=== PATIENT | male | born 1960 | race Caucasian/White ===

== ENCOUNTER 2018-06-06 16:58 | Inpatient (IN) | payer MEDICAID ==
[~2018-06-06] VITALS: Ht 152.4 cm; Wt 94.0 kg
--- NOTE | 2018-06-06 18:10 | NUR ---
juan presented to the ER c/o transient memory loss, on room air, breathing evenly and unlabored. Ambulatory with steady gait. denies any pain at this time. Connected to the montior and [employer]. kept comfortable. will continue to monitor accordingly.
[2018-06-06 18:38] LABS: BASOPHILS % (AUTO) 0.5 % (0.0-2.0); HEMATOCRIT 47 % (39-51); HEMOGLOBIN 15.7 g/dL (13.5-17.5); LYMPHOCYTES % (AUTO) 24.2 % (20.0-44.0); MEAN CORPUSCULAR HGB CONC 34 g/dl (31.0-36.0); MEAN CORPUSCULAR VOLUME 84 fL (80-96); MONOCYTES # (AUTO) 0.6 /CMM (0.1-1.30); MONOCYTES % (AUTO) 6.8 % (2.0-12.0); NEUTROPHILS # (AUTO) 5.5 /CMM (1.8-8.9); NEUTROPHILS % (AUTO) 66.5 % (43.0-81.0); PLATELET COUNT (AUTO) 282 /CMM (150-450); RED BLOOD CELL COUNT(AUTO) 5.57 MIL/uL (4.5-6.0); WHITE BLOOD COUNT (AUTO) 8.3 K/uL (4.3-11.0)
[2018-06-06 18:51] LABS: CARBON DIOXIDE 26 mmol/L (21-32); CHLORIDE 104 mmol/L (98-107); CREATININE 0.7 mg/dL (0.6-1.3); GLUCOSE 115 mg/dL (74-106); POTASSIUM 3.9 mmol/L (3.5-5.1); SODIUM SERUM 137 mmol/L (136-145); UREA NITROGEN, BLOOD 17 mg/dL (7-18)
[2018-06-06 18:56] LABS: ALANINE AMINOTRANSFERASE 32 U/L (12-78); ALBUMIN 3.7 g/dL (3.4-5.0); ALKALINE PHOSPHATASE 96 U/L (46-116); ASPARTATE AMINOTRANSFERASE 22 U/L (15-37); BILIRUBIN,DIRECT 0.1 mg/dL (0.0-0.2); BILIRUBIN,TOTAL 0.4 mg/dL (0.2-1.0); TOTAL PROTEIN, SERUM 7.7 g/dL (6.4-8.2)
[2018-06-06] MEDS ORDERED: ASPIRIN 325 MG TABLET PO ONE (19:30)
--- NOTE | 2018-06-06 19:44 | NUR ---
endorsed to overnight caregiver RN meri for salvador.
[2018-06-06] MEDS ORDERED: ASPIRIN 325 MG TABLET ONE (19:47)
[2018-06-06 20:07] LABS: APPEARANCE,URINE Clear (CLEAR); BILIRUBIN,URINE Negative (NEGATIVE); BLOOD, URINE Trace-lysed Ery/uL (NEGATIVE); COLOR,URINE Yellow (YELLOW); KETONES,URINE Negative (NEGATIVE); LEUKOCYTE ESTERASE ,URINE Negative (NEGATIVE); NITRITE, URINE Negative (NEGATIVE); PH,URINE 5.5 (5.0-8.0); PROTEIN,URINE Negative (NEGATIVE); UGLUCOSE Negative (NEGATIVE); UROBILINOGEN,URINE 0.2 EU/dL (0.2)
[2018-06-06 20:23] LABS: BACTERIA,URINE None seen /HPF (None Seen); RBC,URINE 0-2 /HPF (0-2); SQUAMOUS EPITHELIAL CELL,UR None Seen /HPF (None Seen); WBC,URINE NONE SEEN /HPF (0-3)
[2018-06-06] MEDS ORDERED: MAGNESIUM HYDROXIDE 30 ML UDC PO PRN (20:30)
[2018-06-06] MEDS ORDERED: Z GUARD REMEDY 2 OZ OINT TP PRN (20:30)
[2018-06-06] MEDS ORDERED: ZOLPIDEM TARTRATE 5 MG TABLET PO PRN (20:30)
[2018-06-06] MEDS ORDERED: HYDROCODONE/APAP 5/325MG 1 EACH TABLET PO PRN (20:30)
[2018-06-06] MEDS ORDERED: ONDANSETRON HCL/PF 4 MG/2 ML VIAL IVP PRN (20:30)
[2018-06-06] MEDS ORDERED: ACETAMINOPHEN 325 MG TABLET PO PRN (20:30)
[2018-06-06] MEDS ORDERED: MAG HYDROX/AL HYDROX/SIMETH 30 ML UDC PO PRN (20:30)
--- NOTE | 2018-06-06 20:37 | NUR ---
PT RESTING IN BED, NAD NOTED. WILL CONTINUE TO MONITOR.
--- NOTE | 2018-06-06 20:41 | NUR ---
2ND EKG AT BEDSIDE.
--- NOTE | 2018-06-06 21:04 | NUR ---
REPORT GIVEN TO PETER JACK RN FOR PAYTON.
[2018-06-06 21:10] VITALS: BP 133/91
--- NOTE | 2018-06-06 21:10 | NUR ---
RN NOTES RECEIVED PT. FROM ER WITH DX. OF AMS, SR ON TELE MONITOR HR78, A/OX4, [place] SPEAKING, SON AT BEDSIDE, ADMISSION INSTRUCTION WAS GIVEN, CALL LIGHT WITHIN REACH, [id number], CONTINUE TO MONITOR
[2018-06-06] MEDS: BLOOD SUGAR DIAGNOSTIC 1 EACH STRIP IN SCH (22:00)
[2018-06-07] VITALS: BP 115/66
[2018-06-07] MEDS: BLOOD SUGAR DIAGNOSTIC 1 EACH STRIP IN SCH ×7 (00:04→21:46)
[2018-06-07 04:00] VITALS: BP 113/64
--- NOTE | 2018-06-07 06:00 | NUR ---
RN NOTE CHECK BLOOD SUGAR FOR STROKE PROTOCOL, BLOOD SUGAR-151.. INFORMED DR. CHOW, NO ORDER WAS GIVEN
[2018-06-07 06:29] LABS: CALCIUM, SERUM 8.7 mg/dL (8.5-10.1); CREATININE 0.8 mg/dL (0.6-1.3); MAGNESIUM 2.2 mg/dL (1.8-2.4); PHOSPHORUS 3.6 mg/dL (2.5-4.9)
[2018-06-07 06:31] LABS: BASOPHILS % (AUTO) 0.6 % (0.0-2.0); EOSINOPHILS % (AUTO) 2.9 % (0.0-6.0); HEMATOCRIT 44 % (39-51); HEMOGLOBIN 15.1 g/dL (13.5-17.5); LYMPHOCYTES # (AUTO) 1.5 /CMM (0.8-4.8); MEAN CORPUSCULAR HGB CONC 34 g/dl (31.0-36.0); MEAN CORPUSCULAR VOLUME 84 fL (80-96); MONOCYTES # (AUTO) 0.5 /CMM (0.1-1.30); MONOCYTES % (AUTO) 7.8 % (2.0-12.0); NEUTROPHILS # (AUTO) 4.1 /CMM (1.8-8.9); NEUTROPHILS % (AUTO) 64.7 % (43.0-81.0); PLATELET COUNT (AUTO) 272 /CMM (150-450); RED BLOOD CELL COUNT(AUTO) 5.27 MIL/uL (4.5-6.0); WHITE BLOOD COUNT (AUTO) 6.4 K/uL (4.3-11.0)
--- NOTE | 2018-06-07 06:37 | NUR ---
RN NOTES AWAKE, DENIES PAIN, NO SOB, CALL LIGHT WITHIN REACH,[id number]. MORNING CARE RENDERED, PT. NEEDS ATTENDED
--- NOTE | 2018-06-07 07:32 | NUR ---
RN OPENING NOTE PT WAS RECEIVED IN BED AT LOWEST AND LOCKED POSITION WITH SIDE RAILS UP X2, A/O X4 RESTING COMFORTABLY IN BED [place]UR[place] SPEAKING, ON TELE MONITOR NOTED TO BE SR, ON STROKE PROTOCOL WITH NEUROCHECKS AND ACCUCHECKS, IV IS PATENT AND INTACT, NO CURRENT COMPLAINTS OF ANY DISTRESS OR PAIN AT THIS TIME, SAFETY PRECAUTIONS IN PLACE, CALL LIGHT WITHIN REACH, WILL MONITOR ACCORDINGLY.
[2018-06-07 08:00] VITALS: BP 109/64
[2018-06-07] MEDS: ASPIRIN 81 MG TAB.CHEW PO SCH (08:01)
--- NOTE | 2018-06-07 11:04 | NUR ---
RN NOTE STROKE EDUCATION, SURVEY, AND BOOKLET PROVIDED TO THE PATIENT AT THIS TIME.
--- NOTE | 2018-06-07 12:18 | NUR ---
RN NOTE PT BLOOD GLUCOSE NOTED TO BE 132 AT THIS TIME, ON ACCUCHECK DUE TO STROKE PROTOCOL, DOSE OF METFORMIN SCHEDULED FOR LATER TODAY, WILL MONITOR ACCORDINGLY.
[2018-06-07 16:00] VITALS: BP 124/78
[2018-06-07] MEDS: METFORMIN 500 MG TABLET PO SCH (16:04)
--- NOTE | 2018-06-07 18:21 | NUR ---
RN CLOSING NOTE PT IN BED AT THIS TIME RESTING IN BED AT LOWEST AND LOCKED POSITION WITH SIDE RAILS UP X2, A/O X4 BREATHING EVEN AND UNLABORED ON RA, NO CURRENT COMPLAINTS OF PAIN OR DISTRESS, IV IS PATENT AND INTACT, FAMILY AT THE BEDSIDE, SAFETY PRECAUTIONS IN PLACE, CALL LIGHT WITHIN REACH, WILL ENDORSE TO NET C DEVELOPER RN FOR PAYTON.
--- NOTE | 2018-06-07 19:40 | NUR ---
RN OPENING NOTES RECEIVED REPORT FROM DAYSHIFT FABI[employer]N SALAS. FOUND Pt AWAKE, SITTING UP IN BED. FAMILY VISITING AT BEDSIDE. Pt IS A/OX4, [place] SPEAKING, UNDERSTANDS SOME [place]. NO S/S OF ACUTE DISTRESS OR SOB NOTED. RESPIRATIONS EVEN AND UNLABORED. Pt IS AMB WITH BRP. IV ACCESS ON LAC #18G, SL. D/C PLANNING FOR TOMORROW WHEN CLEARED BY NEURO; WAITING ON NEURO CONSULT. SAFETY MEASURES IN PLACE. BED LOW, LOCKED, HOB ELEVATED, SIDE RAILS UP, CALL LIGHT AND BEDSIDE TABLE WITHIN REACH. WILL CONTINUE TO MONITOR Pt's CONDITION AND SAFETY THROUGHOUT THE NIGHT.
[2018-06-07 20:00] VITALS: BP 119/70
--- NOTE | 2018-06-07 21:53 | NUR ---
RN NOTES HS ACCUCHECK BG 140. NO SLIDING SCALE ORDERED. PER ACCUCHECK NOTE SAID TO NOTIFY MD IF BG >150.
[2018-06-07] MEDS ORDERED: ATORVASTATIN 10 MG TABLET PO SCH (22:00)
[2018-06-08] MEDS: BLOOD SUGAR DIAGNOSTIC 1 EACH STRIP IN SCH ×2 (06:49→12:16)
--- NOTE | 2018-06-08 07:00 | NUR ---
RN NOTES AC ACCUCHECK BG 153. NO SLIDING SCALE ORDERED FOR Pt. NOTIFIED DR CHOW OF Pt's BLOOD GLUCOSE. PER ACCUCHECK DOSE INSTRUCTIONS, SAYS TO NOTIFY MD IF BLOOD SUGAR >150.
--- NOTE | 2018-06-08 07:01 | NUR ---
RN CLOSING NOTES NO SIGNIFICANT CHANGES IN Pt's CONDITION. Pt REMAINS STABLE PER BASELINE. NO S/S OF ACUTE DISTRESS OR SOB NOTED DURING THE NIGHT. RESPIRATIONS EVEN AND UNLABORED. ALL NEEDS MET AND ATTENDED TO. SAFETY MEASURES IN PLACE. WILL ENDORSE TO DAYSHIFT RN FOR Pt's PAYTON.
--- NOTE | 2018-06-08 07:25 | NUR ---
RN OPENING NOTE PT WAS RECEIVED IN BED AT LOWEST AND LOCKED POSITION WITH SIDE RAILS UP X2, A/O X4 RESTING COMFORTABLY IN BED [place] SPEAKING,, ON STROKE PROTOCOL WITH NEUROCHECKS AND ACCUCHECKS, IV IS PATENT AND INTACT, BREATHING EVEN AND UNLABORED ON RA, NO CURRENT COMPLAINTS OF ANY DISTRESS OR PAIN AT THIS TIME, SAFETY PRECAUTIONS IN PLACE, CALL LIGHT WITHIN REACH, WILL MONITOR ACCORDINGLY.
[2018-06-08 08:00] VITALS: BP 115/76
[2018-06-08] MEDS: ASPIRIN 81 MG TAB.CHEW PO SCH (08:12)
[2018-06-08] MEDS: METFORMIN 500 MG TABLET PO SCH (08:12)
[2018-06-08] MEDS ORDERED: ATOR10TA PO (15:08)
[2018-06-08] MEDS ORDERED: METF-440 PO (15:08)
[2018-06-08] MEDS ORDERED: ASPI-1169 PO (15:08)
[2018-06-08 16:00] VITALS: BP 121/72
--- NOTE | 2018-06-08 16:13 | NUR ---
DISCHARGE NOTE PT WAS D/C AT THIS IN MEDICALLY STABLE CONDITION BACK HOME. ALL EXITCARE, D/C PAPERWORK, AND BELONGING LIST WERE SIGNED, DISCUSSED, AND HANDED TO THE PATIENT IN [place]. ALL BELONGINGS WERE TAKEN BY THE PATIENT. IV AND ID BAND WERE REMOVED. STROKE SURVEY WAS FILLED OUT AND PUT IN THE BINDER, STROKE AND TIA INFORMATION WERE PROVIDED TO THE PATIENT. SKIN WAS DRY AND INTACT WITH NO WOUNDS NOTED OR DOCUMENTED. ALL NEEDS WERE ATTENDED TO DURING HIS STAY. HE WAS TAKEN DOWN BY ME WHERE HE LEFT IN HIS PRIVATE CAR ALONG WITH HIS FAMILY.
== END 2018-06-08 16:00 | disposition home or self-care (01) | DRG 54 ==
LOC: ER 17:05 → TELE 20:50 → MED 06-07 09:38
PROVIDERS: ADMIT Internal Medicine; ATTEND Hospitalist
DX: G43.109 Migraine with aura, not intractable, without status migrainosus (principal); G93.41 Metabolic encephalopathy; G45.9 Transient cerebral ischemic attack, unspecified; E66.01 Morbid (severe) obesity due to excess calories; Z68.41 Body mass index [BMI] 40.0-44.9, adult; K21.9 Gastro-esophageal reflux disease without esophagitis; E78.5 Hyperlipidemia, unspecified; E11.9 Type 2 diabetes mellitus without complications
CPT/HCPCS: 36415; 70450-TC; 71045-TC; 80048-TC; 80061-TC; 80076-TC; 80305; 81000-TC; 82962-TC; 83735-TC; 84100-TC; 84484-TC; 85025-TC; 85730-TC; 87081-TC; 92611-TC; 93307-TC; G0378